=== PATIENT | male | born 1925 | race Caucasian/White ===

== ENCOUNTER 2016-08-15 13:34 | Inpatient (IN) | payer OTHER ==
[~2016-08-15] VITALS: Ht 170.2 cm; Wt 76.0 kg
[~2016-08-15 13:34] MED LIST: ACIDOPHILUS1 EAC1 PO; ADVAIR HFA120 INHALA IH; ALLOPURINOL100 MG PO; ANTI-DIARRHEA2 MG PO; APRESOLINE25 MG PO; BACTRIM,SEPT1 TABLET PO; CALCITRIOL0.25 MCG PO; CORTIZONE-1028 GM TP; FERROUS SULFAT325 MG PO; FUROSEMIDE40 MG PO; HYDROCHLOROTHIA25 MG PO; LEVAQUIN750 MG PO; LEVO-T25 MCG PO; LO-DOSE ASPIRIN81 M1 PO; LOPRESSOR25 MG PO; Metoprolol PO; NORVASC10 MG PO; NORVASC5 MG PO; Norvasc PO; OCUVITE TABLET1 EACH PO; OMEPRAZOLE20 MG PO; OXYCODONE HCL5 MG PO; PANTOPRAZOLE SO40 MG PO; PREDNISONE10 MG PO; PRESERVISION T1 EACH PO; PROAIR HFA8.5 GM IH; SERTRALINE HCL100 MG PO; SPIRIVA1 INHALATI IH; SYMBICORT60 INHALA1 IH; TOPROL XL6.25 MG PO; TYLENOL ARTHRI650 MG PO; TYLENOL EXTRA500 MG PO; ULTRAM50 MG PO; VENTOLIN HFA18 GM IH
[2016-08-15 14:42] LABS: EOSINOPHIL (%) 0.1 % (0-5); HEMATOCRIT 38.4 % (38.0-50.0); IMMATURE GRANULOCYTE (%) 0.4 % (0.0-0.7); IMMATURE GRANULOCYTE COUNT 0.1 K/uL; INSTRUMENT ABS NEUTROPHIL CT 13.7 K/uL; LYMPHOCYTE COUNT 0.3 K/uL (1.0-2.8); MCHC 32.3 G/DL (30.0-36.0); MCV 99.2 FL (86-99); MONOCYTE (%) 4.5 % (3-12); MONOCYTE COUNT 0.7 K/uL (0-0.8); NEUTROPHIL (%) 92.5 % (45-76); NEUTROPHIL COUNT 13.7 K/uL (1.8-6.4); RBC DIS.WIDTH-CV 13.8 % (11.8-14.6); RED BLOOD COUNT 3.87 M/uL (4.00-5.50)
[2016-08-15 14:48] LABS: WHITE BLOOD COUNT 14.8 K/uL (4.1-10.2)
[2016-08-15 14:52] LABS: CHLORIDE 99 mEq/L (99-109); POTASSIUM 4.7 mEq/L (3.7-5.4); SODIUM 140 mEq/L (136-147)
[2016-08-15 14:54] LABS: GLUCOSE 130 mg/dL (70-99)
[2016-08-15 14:55] LABS: ANION GAP 16 MEQ/L (2-14)
[2016-08-15 14:56] LABS: TOTAL BILIRUBIN 0.7 mg/dL (0.0-1.0)
[2016-08-15 14:57] LABS: ALKALINE PHOSPHATASE 117 IU/L (3-129)
[2016-08-15 14:58] LABS: GFR ESTIMATE (CALCULATED) 19 mL/min/
[2016-08-15 14:59] LABS: UREA NITROGEN (BUN) 76 mg/dL (9-23)
[2016-08-15 15:04] LABS: TROP-I INTERPRETATION NEGATIVE; TROPONIN-I 0.05 ng/mL (0.0-0.30)
[2016-08-15 15:28] LABS: ADD MIUA? YES; BILIRUBIN NEGATIVE; BLOOD MODERATE; COLOR YELLOW ((YELLOW)); GLUCOSE (STRIP) NEGATIVE; KETONES NEGATIVE; LEUKOCYTES NEGATIVE; NITRITE NEGATIVE; PROTEIN (STRIP) 30; UROBILINOGEN 0.2 MG/DL (0.2-1.0)
[2016-08-15 15:37] LABS: BACTERIA NONE SEEN /HPF; EPITHELIAL CELLS RARE /HPF; HYALINE CASTS 0-5 /LPF; MUCUS TRACE /LPF; WHITE BLOOD CELLS 0-5 /HPF (0-5)
[2016-08-15 15:38] LABS: CREATINE KINASE 430 IU/L (1-294)
[2016-08-15 15:47] LABS: PLATELET COUNT UNABLE TO REPORT K/uL (156-360)
[2016-08-15] MEDS ORDERED: FUROSEMIDE40 MG PO ×2 (17:18→17:19)
[2016-08-15] MEDS ORDERED: PRESERVISION T1 EACH PO (17:20)
[2016-08-15] MEDS ORDERED: VITAMIN D31000 UNI2 PO (17:21)
[2016-08-15 19:31] VITALS: BP 150/75
[2016-08-15 19:47] LABS: PLATELET CLUMPS PRESENT - PLATELET COUNT APPEARS ADQ.
[2016-08-15 22:49] VITALS: BP 113/59
[2016-08-16 06:23] LABS: HEMATOCRIT 28.6 % (38.0-50.0); MCH 31.9 PG (29.0-34.0); MCHC 32.2 G/DL (30.0-36.0); MCV 99.3 FL (86-99); MEAN PLAT.VOLUME 10.5 uM^3 (9.0-12.4); PLATELET COUNT 249 K/uL (156-360); RBC DIS.WIDTH-CV 14.2 % (11.8-14.6); RBC DIS.WIDTH-SD 50.8 % (39-53); WHITE BLOOD COUNT 10.5 K/uL (4.1-10.2)
[2016-08-16 06:31] LABS: RED BLOOD COUNT 2.88 M/uL (4.00-5.50)
[2016-08-16 06:42] LABS: ANION GAP 11 MEQ/L (2-14); CHLORIDE 103 MEQ/L (99-109); CREATINE KINASE 289 IU/L (1-294); GFR ESTIMATE (CALCULATED) 20 mL/min/; GLUCOSE 98 mg/dL (70-99); POTASSIUM 3.9 MEQ/L (3.7-5.4); SAMPLE HEMOLYSIS CHECK 0; SAMPLE ICTERIC CHECK 0; SAMPLE LIPEMIA CHECK 0; SODIUM 140 MEQ/L (136-147); UREA NITROGEN (BUN) 69 mg/dL (9-23)
[2016-08-16 07:00] VITALS: BP 155/67
[2016-08-16 16:07] VITALS: BP 134/66
[2016-08-16 20:45] VITALS: BP 135/64
[2016-08-16 22:55] VITALS: BP 135/93
[2016-08-17 06:25] LABS: EOSINOPHIL (%) 2.8 % (0-5); EOSINOPHIL COUNT 0.3 K/uL (0-0.3); HEMATOCRIT 28.9 % (38.0-50.0); IMMATURE GRANULOCYTE (%) 0.3 % (0.0-0.7); INSTRUMENT ABS NEUTROPHIL CT 8.5 K/uL; LYMPHOCYTE COUNT 0.7 K/uL (1.0-2.8); MCH 32.6 PG (29.0-34.0); MCHC 32.2 G/DL (30.0-36.0); MCV 101.4 FL (86-99); MEAN PLAT.VOLUME 10.1 uM^3 (9.0-12.4); MONOCYTE COUNT 0.7 K/uL (0-0.8); NEUTROPHIL (%) 83.1 % (45-76); NEUTROPHIL COUNT 8.5 K/uL (1.8-6.4); PLATELET COUNT 221 K/uL (156-360); RBC DIS.WIDTH-CV 14.3 % (11.8-14.6); RBC DIS.WIDTH-SD 53.5 % (39-53); RED BLOOD COUNT 2.85 M/uL (4.00-5.50); WHITE BLOOD COUNT 10.2 K/uL (4.1-10.2)
[2016-08-17 06:41] LABS: ANION GAP 12 MEQ/L (2-14); CHLORIDE 106 MEQ/L (99-109); GFR ESTIMATE (CALCULATED) 24 mL/min/; GLUCOSE 95 mg/dL (70-99); POTASSIUM 3.9 MEQ/L (3.7-5.4); SAMPLE HEMOLYSIS CHECK 0; SAMPLE ICTERIC CHECK 0; SAMPLE LIPEMIA CHECK 0; SODIUM 141 MEQ/L (136-147); UREA NITROGEN (BUN) 62 mg/dL (9-23)
[2016-08-17 06:50] VITALS: BP 179/75
[2016-08-17 14:59] VITALS: BP 116/68
[2016-08-17 22:35] VITALS: BP 168/81
[2016-08-18 03:25] VITALS: BP 123/57
[2016-08-18 06:17] LABS: HEMATOCRIT 28.8 % (38.0-50.0); MCH 32.9 PG (29.0-34.0); MCHC 32.3 G/DL (30.0-36.0); MCV 101.8 FL (86-99); MEAN PLAT.VOLUME 10.8 uM^3 (9.0-12.4); PLATELET COUNT 234 K/uL (156-360); RBC DIS.WIDTH-CV 14.3 % (11.8-14.6); RBC DIS.WIDTH-SD 53.6 % (39-53); RED BLOOD COUNT 2.83 M/uL (4.00-5.50); WHITE BLOOD COUNT 8.6 K/uL (4.1-10.2)
[2016-08-18 06:42] LABS: ANION GAP 10 MEQ/L (2-14); CHLORIDE 108 MEQ/L (99-109); GFR ESTIMATE (CALCULATED) 27 mL/min/; GLUCOSE 94 mg/dL (70-99); POTASSIUM 3.9 MEQ/L (3.7-5.4); SAMPLE HEMOLYSIS CHECK 0; SAMPLE ICTERIC CHECK 0; SAMPLE LIPEMIA CHECK 0; SODIUM 139 MEQ/L (136-147); UREA NITROGEN (BUN) 58 mg/dL (9-23)
[2016-08-18 08:24] VITALS: BP 170/78
[2016-08-18 10:18] VITALS: BP 145/72
[2016-08-18 16:07] VITALS: BP 129/65
[2016-08-18 23:02] VITALS: BP 153/70
[2016-08-19 06:55] VITALS: BP 159/72
[2016-08-19] MEDS ORDERED: CEFUROXIME500 MG PO ×2 (10:48→10:53)
== END 2016-08-19 13:15 | DRG 85 ==
LOC: EME 13:34 → EDOF 17:20 → 5EAST 17:20
PROVIDERS: Emergency Medicine; Internal Medicine; Nurse Practitioner Adult Health; Student in an Organized Health Care Education/Training Program
DX: S02.19XA Other fracture of base of skull, initial encounter for closed fracture (principal); S02.40FA Zygomatic fracture, left side, initial encounter for closed fracture; J44.0 Chronic obstructive pulmonary disease with (acute) lower respiratory infection; J18.9 Pneumonia, unspecified organism; W18.30XA Fall on same level, unspecified, initial encounter; M62.82 Rhabdomyolysis; J90 Pleural effusion, not elsewhere classified; N18.4 Chronic kidney disease, stage 4 (severe); I12.9 Hypertensive chronic kidney disease with stage 1 through stage 4 chronic kidney disease, or unspecified chronic kidney disease; R26.9 Unspecified abnormalities of gait and mobility; R29.6 Repeated falls; I48.91 Unspecified atrial fibrillation; E78.5 Hyperlipidemia, unspecified; K21.9 Gastro-esophageal reflux disease without esophagitis; E03.9 Hypothyroidism, unspecified; K59.00 Constipation, unspecified; M19.90 Unspecified osteoarthritis, unspecified site; H35.30 Unspecified macular degeneration; F32.9 Major depressive disorder, single episode, unspecified; Z66 Do not resuscitate; Y92.018 Other place in single-family (private) house as the place of occurrence of the external cause; Z85.46 Personal history of malignant neoplasm of prostate; Z87.891 Personal history of nicotine dependence; Z88.5 Allergy status to narcotic agent; Z98.1 Arthrodesis status
CPT/HCPCS: 70450; 70486; 71010; 71020; 72125; 72131; 74000; 80048; 80053; 81003; 82550; 83605; 84484; 85025; 85027; 87040; 93005; 94640; 94640 76; 94760; 97530 GO; 99202; 99281; 99285; C9113; J0456; J0690; J0696; J1650; J7030; J7050